=== PATIENT | female | born 1965 | race Caucasian/White ===

== ENCOUNTER 2022-06-19 13:05 | Emergency (ER) | payer MEDICARE, OTHER ==
[~2022-06-19 13:05] MED LIST: ABILIFY15 MG PO; ACETAMINOPHEN650 M1 PO; ALDACTONE25 MG PO; ARICEPT5 MG PO; ASPIR-LOW81 MG PO; ASPIRIN 325MG325 MG PO; ASPIRIN CHEWABL81 MG PO; ATIVAN0.5 MG PO; ATORVASTATIN CA80 MG PO; BISAC-EVAC10 MG PR; CLEOCIN SU75 MG/5 ML PO; COUMADIN 1MG TAB1 MG PO; COUMADIN1 MG PO; CYCLOBENZAPRINE5 MG PO; DULCOLAX10 MG PR; EFFEXOR XR75 MG PO; ENEMA BOTTLE1 EACH MC; ENTRESTO 24 MG1 EACH PO; JANTOVEN1 MG PO; KEPPRA500 MG PO; LASIX20 MG PO; LATANOPROST2.5 ML OP; LEVOFLOXACIN500 MG PO; LIPITOR TAB 2020 MG PO; LOPRESSOR 25 MG25 MG PO; MACROBID 100 M100 MG PO; MILK OF MA400 MG/5 M PO; MILK OF MAGNESI30 ML PO; MULTI-VITAMIN1 EACH PO; MULTIVITAMIN; NORCO 5-325 TA1 EACH PO; OMEPRAZOLE20 MG PO; OMNICEF 300 MG300 MG PO; PROTONIX40 MG PO; REMERON15 MG PO; THERAGRAN M TAB1 EA PO; TOPROL XL25 MG PO; TUSSIN DM COUG PO; TYLENOL 325MG325 MG PO; VITAMIN D-32000 UNI1 PO; VITAMIN D32000 UNI1 PO; ZOFRAN4 MG PO; ZYPREXA2.5 MG PO; [UNRECOGNIZED DRUG - OTHER] TP
[2022-06-19 13:57] LABS: HEMOGLOBIN 13.9 gm/dl (12.3-15.3); RED BLOOD COUNT 4.66 M/UL (4.00-5.10); WHITE BLOOD COUNT 5.5 K/UL (4.5-11.0)
[2022-06-19 14:10] LABS: BUN/CREATININE RATIO 25 (0-10)
[2022-06-20 07:11] LABS: HBSAG SCREEN Negative (Negative); HCV AB <0.1 (0.0-0.9); HEP A AB, IGM Negative (Negative); HEP B CORE AB, IGM Negative (Negative)
== END 2022-06-19 17:27 | disposition home or self-care (01) ==
LOC: ER1 13:05
PROVIDERS: Emergency Medicine
DX: F03.90 Unspecified dementia, unspecified severity, without behavioral disturbance, psychotic disturbance, mood disturbance, and anxiety (principal); G83.9 Paralytic syndrome, unspecified; R74.01 Elevation of levels of liver transaminase levels; Z86.73 Personal history of transient ischemic attack (TIA), and cerebral infarction without residual deficits
CPT/HCPCS: 76705; 80053; 80074; 83690; 85025; 85610; 99285